=== PATIENT | male | born 1985 | race Caucasian/White ===

== ENCOUNTER 2018-08-31 22:40 | Emergency (ER) | payer OTHER ==
[2018-09-01] MEDS ORDERED: ONDANSETRON HCL INJ/PF 4 MG/2 ML SDV IV ONE (01:04)
[2018-09-01] MEDS ORDERED: KETOROLAC TROMETHAMINE INJ/PF 30 MG/1 ML SDV IV ONE (01:05)
--- NOTE | 2018-09-01 01:06 | ER Document Report ---
ED Medical Screen (RME) - General Chief Complaint: Abdominal Pain Stated Complaint: ABDOMINAL PAIN Time Seen by Provider: 09/01/18 01:04 Primary Care Provider: MARITO YATES MD [Primary Care Provider] - Follow up as needed Notes: Patient is an otherwise healthy 33-year-old male presents to the emergency department for over 10 episodes of diarrhea and 3 episodes of vomiting denies blood in both for the last 24 hours. Patient states he is also had some generalized left flank pain. Patient's denying that the left flank pain "radiates around to his left front left lower quadrant into his groin or penis. Patient is denying any dysuria. Patient's denying any history of kidney stones. GENERAL: Alert, interacts well. No acute distress. ABDOMEN: Soft, non-tender. Non-distended. Bowel sounds present in all 4 quadrants. No McBurney's point tenderness, no Francisco sign noted EXTREMITIES: Moves all 4 extremities spontaneously. No edema, normal radial and dorsalis pedis pulses bilaterally. No cyanosis. BACK: no cervical, thoracic, lumbar midline tenderness. No saddle anesthesia, normal distal neurovascular exam. Left CVA tenderness noted I have greeted and performed a rapid initial assessment of this patient. A comprehensive ED assessment and evaluation of the patient, analysis of test results and completion of the medical decision making process will be conducted by additional ED providers. TRAVEL OUTSIDE OF THE [place] IN LAST 30 DAYS: No - Related Data Allergies/Adverse Reactions: No Known Allergies Allergy (Unverified 08/31/18 22:47) Doctor's Discharge - Discharge Referrals: MARITO YATES MD [Primary Care Provider] - Follow up as needed
[2018-09-01 01:07] VITALS: BP 136/90
[2018-09-01 01:28] LABS: ABSOLUTE LYMPHOCYTES (AUTO) 0.6 10^3/uL (0.5-4.7); ABSOLUTE MONOCYTES (AUTO) 0.7 10^3/uL (0.1-1.4); ABSOLUTE NEUT (AUTO) 8.7 10^3/uL (1.7-8.2); BASOPHILS % (AUTO) 0.3 % (0-2); EOSINOPHILS % (AUTO) 0.1 % (0-6); HEMATOCRIT 50.4 % (37.9-51.0); HEMOGLOBIN 17.5 g/dL (13.5-17.0); LYMPHOCYTES % (AUTO) 6.1 % (13-45); MEAN CORPUSCULAR HEMOGLOBIN 31.9 pg (27.0-33.4); MEAN CORPUSCULAR HGB CONC 34.8 g/dL (32.0-36.0); MEAN CORPUSCULAR VOLUME 92 fl (80-97); MONOCYTES % (AUTO) 7.2 % (3-13); PLATELET COUNT 311 10^3/uL (150-450); RED CELL DISTRIBUTION WIDTH 13.3 % (11.5-14.0); SEGMENTED NEUTROPHILS % (AUTO) 86.3 % (42-78); TOTAL CELLS COUNTED % (AUTO) 100 %; WHITE BLOOD COUNT 10.1 10^3/uL (4.0-10.5)
[2018-09-01 01:38] LABS: APPEARANCE,URINE TURBID; BILIRUBIN,URINE SMALL (NEGATIVE); COLOR,URINE AMBER; GLUCOSE, URINE NEGATIVE (NEGATIVE); KETONES,URINE 20 mg/dL (NEGATIVE); LEUKOCYTE ESTERASE,URINE NEGATIVE (NEGATIVE); NITRITE,URINE NEGATIVE (NEGATIVE); PROTEIN,URINE 30 mg/dL (NEGATIVE); URINE SPECIFIC GRAVITY 1.033; UROBILINOGEN,URINE NEGATIVE mg/dL (<2.0)
[2018-09-01 01:42] LABS: ALANINE AMINOTRANSFERASE 30 U/L (21-72); ALBUMIN 4.7 g/dL (3.5-5.0); ALKALINE PHOSPHATASE 81 U/L (38-126); ANION GAP 11 (5-19); ASPARTATE AMINO TRANSFERASE 33 U/L (17-59); BILIRUBIN,DIRECT 0.2 mg/dL (0.0-0.4); BILIRUBIN,TOTAL 0.9 mg/dL (0.2-1.3); BLOOD UREA NITROGEN 18 mg/dL (7-20); CALCIUM 9.9 mg/dL (8.4-10.2); CARBON DIOXIDE 25 mmol/L (22-30); CHLORIDE 101 mmol/L (98-107); GLUCOSE 141 mg/dL (75-110); LIPASE 51.1 U/L (23-300); SODIUM 137.4 mmol/L (137-145)
--- NOTE | 2018-09-01 01:59 | RADIOLOGY REPORT (SQ) ---
EXAM DESCRIPTION: US RETROPERITONEUM COMPLETED DATE/TME: 09/01/2018 01:04 CLINICAL HISTORY: 33 years, Male, left flank pain COMPARISON: None. TECHNIQUE: Renal ultrasound/retroperitoneal ultrasound LIMITATIONS: None. FINDINGS: The right kidney measures 10.6 x 4.9 x 5.2 cm, the left 11.2 x 6.5 x 5.3 cm. No renal calculus, mass, or hydronephrosis. No perinephric fluid collection. Cord medullary differentiation preserved bilaterally. Urinary bladder is not distended and therefore not well seen. IMPRESSION: Unremarkable appearance to the kidneys bilaterally copyright 2010 [employer]- All Rights Reserved
[2018-09-01] MEDS ORDERED: ONDANSETRON ODT 4 MG TAB (6 TAB/ER DISP) PO PRN (02:46)
--- NOTE | 2018-09-01 02:47 | ER Document Report ---
ED General - General Chief Complaint: Abdominal Pain Stated Complaint: ABDOMINAL PAIN Time Seen by Provider: 09/01/18 01:04 Primary Care Provider: MARITO YATES MD [NO LOCAL MD] - Follow up as needed Notes: Patient is a 33-year-old male who presents with complaint of some left-sided flank pain. Patient says that he had vomiting diarrhea associated with it as well. Said multiple episodes of vomiting as well as watery stools. No blood in emesis or the stool. He received Zofran and Toradol in triage. He says his symptoms resolved and he feels very well now. No fevers. No sick contacts. No travel outside the country. No other complaints at this time. TRAVEL OUTSIDE OF THE [place] IN LAST 30 DAYS: No - Related Data Allergies/Adverse Reactions: No Known Allergies Allergy (Unverified 08/31/18 22:47) Past Medical History - Social History Smoking Status: Never Smoker Frequency of alcohol use: None Drug Abuse: None Family History: Reviewed & Not Pertinent Patient has suicidal ideation: No Patient has homicidal ideation: No Renal/ Medical History: Denies: Hx Peritoneal Dialysis Review of Systems - Review of Systems Notes: My Normal Review Basic REVIEW OF SYSTEMS: CONSTITUTIONAL : Denies fever, chills, or sweats. RESPIRATORY: Denies cough, cold, or chest congestion. Denies shortness of breath, difficulty breathing, or wheezing. GASTROINTESTINAL: Left-sided flank pain. Vomiting. Diarrhea. GENITOURINARY: Denies difficulty urinating, painful urination, burning, frequency, or blood in urine. MUSCULOSKELETAL: Denies neck or back pain or joint pain or swelling. SKIN: Denies rash or skin lesions. NEUROLOGICAL: Denies altered mental status or loss of consciousness. ALL OTHER SYSTEMS REVIEWED AND NEGATIVE. Physical Exam - Vital signs Vitals: Temp Pulse Resp BP Pulse Ox 98.5 F 95 18 136/90 H 99 09/01/18 01:01 09/01/18 01:01 09/01/18 01:01 09/01/18 01:01 09/01/18 01:01 - Notes Notes: General Appearance: Well nourished, alert, cooperative, no acute distress, no obvious discomfort. Well-appearing. Vitals: reviewed, See vital signs table. Eyes: PERRL, EOMI, Conjuctiva clear Mouth: No decreasd moisture Throat: No tonsillar inflammation, No airway obstruction, No lymphadenopathy Lungs: No wheezing, No rales, No rhonci, No accessory muscle use, good air exchange bilaterally. Heart: Normal rate, Regular rythm, No murmur, no rub Abdomen: Normal BS, soft, No rigidity, no reproducible abdominal tenderness or flank tenderness to palpation. Extremities: good pulses in all extremities, no swelling or tenderness in the extremities, no edema. Skin: warm, dry, appropriate color, no rash Neuro: speech clear, oriented x 3, normal affect, responds appropriately to questions. Course - Re-evaluation Re-evalutation: 09/01/18 02:45 On exam patient looks very well. His symptoms have completely resolved. He has no reproducible pain to palpation. Feel he safe to be discharged home. I did talk to him about possibly kidney stone. I told him I think this is unlikely being that he had multiple episodes of watery diarrhea in conjunction with the vomiting. It sounds to believe not lead to this. He is doing much kidney sto doug because there was some blood in his urine pain was more in the flank location. Currently he is pain-free and looks well. I informed him that we will hold off on doing a CT scan and treat his nausea over the next 24 hours. I informed him he should have low threshold to return to ER if he has recurrent pain, recurrent vomiting, fevers, or feels unwell. Patient agrees with plan will be discharged home. Dictation of this chart was performed using voice recognition software; therefore, there may be some unintended grammatical errors. - Vital Signs Vital signs: Temp Pulse Resp BP Pulse Ox 98.5 F 95 18 136/90 H 99 09/01/18 01:01 09/01/18 01:01 09/01/18 01:01 09/01/18 01:01 09/01/18 01:01 - Laboratory Result Diagrams: 09/01/18 01:18 09/01/18 01:18 Laboratory results interpreted by me: 09/01/18 09/01/18 09/01/18 01:18 01:18 01:18 Hgb 17.5 H Seg Neutrophils % 86.3 H Lymphocytes % 6.1 L Absolute Neutrophils 8.7 H Creatinine 1.57 H Est GFR (Non-Af Amer) 51 L Glucose 141 H Urine Protein 30 H Urine Ketones 20 H Urine Blood LARGE H Urine Bilirubin SMALL H Discharge - Discharge Clinical Impression: Flank pain, Vomiting and diarrhea Condition: Good Disposition: HOME, SELF-CARE Additional Instructions: Please take the Zofran as 1 tablet every 4 hours as needed for any nausea. Please have a low threshold to return to ER if you have recurrent pain, recurrent vomiting, blood in your stool or vomit, fevers, or feel unwell. Please follow-up with the doctor in 48 hours if you are still having any recurrence of symptoms. Forms: Return to Work Referrals: MARITO YATES MD [NO LOCAL MD] - 09/03/18
== END 2018-09-01 03:22 | disposition home or self-care (01) ==
LOC: ER 22:40
DX: R10.9 Unspecified abdominal pain (principal); R11.10 Vomiting, unspecified; R19.7 Diarrhea, unspecified
CPT/HCPCS: 99284; 96374; 96375; 36415; 83690; 85025; 80053; 81001; 76770; J1885; J2405